=== PATIENT | male | born 1955 | race Caucasian/White ===

== ENCOUNTER → 2016-10-07 | Outpatient (CLI) | payer MEDICARE | LOC: RAD 08:28 | PROVIDERS: ATTEND Surgery | DX: K43.9 Ventral hernia without obstruction or gangrene (principal) | CPT/HCPCS: 74177; 82565 ==

== ENCOUNTER → 2018-04-06 | Outpatient (CLI) | payer MEDICARE ==
--- NOTE | 2018-04-06 11:32 | RADIOLOGY REPORT (SQ) ---
EXAM DESCRIPTION: CT CHEST WITHOUT COMPLETED DATE/TIME: 04/06/2018 10:54 am REASON FOR STUDY: DYSPNEA (R06.00) R06.00 DYSPNEA, UNSPECIFIED COMPARISON: 10/04/2014 TECHNIQUE: CT scan performed of the chest without intravenous contrast. Images reviewed with lung, soft tissue and bone windows. Reconstructed coronal and sagittal MPR images reviewed. All images st ored on PACS. All CT scanners at this facility use dose modulation, iterative reconstruction, and/or weight based d osing when appropriate to reduce radiation dose to as low as reasonably achievable (ALARA). [facility]: Dose Right [facility]: CareDose [facility]: Dose Right [facility]: Teradose 4D [facility]: [employer] RADIATION DOSE: CT Rad equipment meets quality standard of care and radiation dose reduction techniq ues were employed. CTDIvol: 14.0 mGy. DLP: 573 mGy-cm. mGy. LIMITATIONS: No technical limitations. FINDINGS: LUNGS AND PLEURA: Postoperative changes right upper lobe. Increasing subpleural nodularit y right lower lobe and along the major fissure. No effusions. HILAR AND MEDIASTINAL STRUCTURES: No identified masses or abnormal nodes. No obvious aneurysm. HEART AND VASCULAR STRUCTURES: No aneurysm. No pericardial effusion. UPPER ABDOMEN: No significant findings. Limited exam. THYROID AND OTHER SOFT TISSUES: No masses. No adenopathy. BONES: No acute findings. HARDWARE: CABG. OTHER: No other significant findings. IMPRESSION: Increasing nodularity in the right lower lobe, probably granulation tissue. However six -month follow-up is recommended. TECHNICAL DOCUMENTATION: JOB ID: [id number] Quality ID # [id number]: Final reports with documentation of one or more dose reduction techniques (e.g., Au tomated exposure control, adjustment of the mA and/or kV according to patient size, use of iterative reconstruction technique) 2010 [email or web address]- All Rights Reserved Reading location - IP/workstation name: [email or web address]
== END ==
LOC: RAD 10:39
PROVIDERS: ATTEND Internal Medicine Pulmonary Disease
DX: R06.00 Dyspnea, unspecified (principal)
CPT/HCPCS: 71250

== ENCOUNTER → 2018-10-09 | Outpatient (CLI) | payer MEDICARE ==
--- NOTE | 2018-10-09 15:45 | RADIOLOGY REPORT (SQ) ---
EXAM DESCRIPTION: CT CHEST WITHOUT COMPLETED DATE/TIME: 10/09/2018 2:24 pm REASON FOR STUDY: OTHER NONSPECIFIC ABNORMAL FINDING OF LUNG FIELD R91.8 OTHER NONSPECIFIC ABNORMAL FINDING OF LUNG FIELD COMPARISON: 04/06/2018 TECHNIQUE: CT scan performed of the chest without intravenous contrast. Images reviewed with lung, soft tissue and bone windows. Reconstructed coronal and sagittal MPR images reviewed. All images st ored on PACS. All CT scanners at this facility use dose modulation, iterative reconstruction, and/or weight based d osing when appropriate to reduce radiation dose to as low as reasonably achievable (ALARA). [facility]: Dose Right [facility]: CareDose [facility]: Dose Right [facility]: Teradose 4D [facility]: [employer] RADIATION DOSE: CT Rad equipment meets quality standard of care and radiation dose reduction techniq ues were employed. CTDIvol: 14.2 mGy. DLP: 552 mGy-cm. mGy. LIMITATIONS: No technical limitations. FINDINGS: LUNGS AND PLEURA: Chronic partially calcified pleural thickening and nodularity along the fissures in the right lung. Faint reticulonodular pattern not significantly changed. No developing or enlarging nodules. No infiltrate. No effusions. HILAR AND MEDIASTINAL STRUCTURES: No identified masses or abnormal nodes. No obvious aneurysm. HEART AND VASCULAR STRUCTURES: No aneurysm. No pericardial effusion. UPPER ABDOMEN: No significant findings. Limited exam. THYROID AND OTHER SOFT TISSUES: No masses. No adenopathy. BONES: Nothing acute. HARDWARE: CABG. OTHER: No other significant findings. IMPRESSION: Stable chronic changes in the right lung. TECHNICAL DOCUMENTATION: JOB ID: [id number] Quality ID # [id number]: Final reports with documentation of one or more dose reduction techniques (e.g., Au tomated exposure control, adjustment of the mA and/or kV according to patient size, use of iterative reconstruction technique) 2010 [employer]- All Rights Reserved Reading location - IP/workstation name: [email or web address]
== END ==
LOC: RAD 13:54
PROVIDERS: ATTEND Internal Medicine Pulmonary Disease
DX: R91.8 Other nonspecific abnormal finding of lung field (principal); Z95.1 Presence of aortocoronary bypass graft
CPT/HCPCS: 71250

== ENCOUNTER 2019-01-30 12:31 | Day surgery (SDC) | payer MEDICARE ==
[2019-01-30] MEDS ORDERED: PROPOFOL INJ 200 MG/20 ML VIAL IV ONE (12:53)
[2019-01-30] MEDS ORDERED: DIPHENHYDRAMINE HCL 50 MG/ML VIAL IV PRN (14:48)
--- NOTE | 2019-01-30 15:06 | Operative Report ---
Operative Report DATE OF SURGERY: 01/30/19 Operative Report: The risks benefits and alternatives of the procedure explained to the patient in detail and informed consent is obtained.A GIF Olympus video scope was inserted into the patient's mouth and hypopharynx, the esophagus is identified intubated and insufflated, the scope was then advanced through the esophagus stomach and duodenum, retroflexion maneuver is done, the esophagus stomach and first and second portions of the duodenum examined PREOPERATIVE DIAGNOSIS: Abdominal pain POSTOPERATIVE DIAGNOSIS: Gastritis status post biopsy rule out Helicobacter pylori. Duodenitis. Hiatal hernia OPERATION: EGD with biopsy SURGEON: GABBIE REY ANESTHESIA: LMAC TISSUE REMOVED OR ALTERED: As noted above. COMPLICATIONS: None. ESTIMATED BLOOD LOSS: None. INTRAOPERATIVE FINDINGS: As noted above. PROCEDURE: Patient tolerated the procedure well. No immediate postprocedure complications are noted. Patient is discharged in good condition. Discharge date 01/30/2019. Discharge diet: Regular. Discharge activity: Regular. 2 to 3-week follow-up to discuss findings. Patient is instructed to call the office or proceed to the emergency room should there be any further problems or questions. Wait on the pathology.
[2019-01-30 16:43] VITALS: BP 126/73
--- NOTE | 2019-01-30 20:54 | EKG REPORT ---
SEVERITY:- ABNORMAL ECG - SINUS RHYTHM RBBB AND LAFB : Confirmed by: Caron Diamond MD 30-Jan-2019 20:53:36
== END 2019-01-30 16:05 | disposition home or self-care (01) ==
LOC: OROUT 12:31
PROVIDERS: ATTEND Internal Medicine Gastroenterology
DX: K29.50 Unspecified chronic gastritis without bleeding (principal); K29.80 Duodenitis without bleeding; K44.9 Diaphragmatic hernia without obstruction or gangrene; J44.9 Chronic obstructive pulmonary disease, unspecified; R06.02 Shortness of breath; I50.9 Heart failure, unspecified; I25.2 Old myocardial infarction; Z95.5 Presence of coronary angioplasty implant and graft; Z99.81 Dependence on supplemental oxygen; Z87.891 Personal history of nicotine dependence; Z79.899 Other long term (current) drug therapy; Z79.51 Long term (current) use of inhaled steroids; Z79.82 Long term (current) use of aspirin
CPT/HCPCS: 88305 ×2; 93005; 93010; J2704; 43239

== ENCOUNTER → 2019-09-05 | Outpatient (CLI) | payer MEDICARE ==
[2019-09-05 15:22] LABS: ARTERIAL BLOOD BASE EXCESS 1.7 mmol/L; ARTERIAL BLOOD H2CO3 1.63 mmol/L (1.05-1.35); ARTERIAL BLOOD HCO3 28.6 mmol/L (20-24); ARTERIAL BLOOD O2 SATURATION 96.9 % (94-98); ARTERIAL BLOOD PCO2 54.3 mmHg (35-45); ARTERIAL BLOOD PH 7.34 (7.35-7.45); ARTERIAL BLOOD PO2 97.1 mmHg (80-100); ARTERIAL BLOOD TOTAL CO2 30.2 mmol/L (23-27)
[2019-09-05 15:23] LABS: ARTERIAL BLOOD FIO2 2L
== END ==
LOC: OD 14:45
PROVIDERS: ATTEND Internal Medicine Pulmonary Disease
DX: J96.11 Chronic respiratory failure with hypoxia (principal)
CPT/HCPCS: 82803